=== PATIENT | female | born 1985 | race Caucasian/White ===

== ENCOUNTER → 2016-09-06 | Outpatient (CLI) | payer OTHER ==
[~2016-09-06] MED LIST: ADDERALL10 MG PO; FLAGYL500 MG PO; FLEXERIL10 MG PO; LEVAQUIN750 MG PO; LOMOTIL 0.025 M1 TA1 PO; NASONEX0.05 MG/AC NAS; NORFLEX100 MG PO; PHENERGAN25 M1 PO; PREDNICOT20 MG PO; SUBUTEX2 MG SL; SUBUTEX8 M1 SL; TOPAMAX2 MG PO; TOPAMAX25 M1 PO; TRAMADOL HCL50 MG PO; ULTRAM50 MG PO; ZANTAC150 MG PO; ZITHROMAX Z PA250 MG PO; ZITHROMAX250 MG PO; ZOFRAN ODT4 MG SL; ZOLOFT100 MG PO; ZYRTEC10 MG PO
[2016-09-06 11:40] LABS: HEMATOCRIT 40.3 % (37.0-47.0); HEMOGLOBIN 12.2 g/dl (12.0-16.0); MEAN CELL VOLUME 68.9 fl (81.0-99.0); MEAN CORPUSCULAR HGB 20.9 pg (27.0-31.0); MEAN CORPUSCULAR HGB CONC 30.3 g/dl (33.0-37.0); RED BLOOD COUNT 5.85 10*6/uL (4.10-5.10); RED CELL DISTRI WIDTH 17.3 % (0-14.5)
[2016-09-06 11:55] LABS: HEMOGLOBIN A1c 5.3 % (4.8-5.6)
[2016-09-06 11:59] LABS: ALKALINE PHOSPHATASE 75 U/L (45-117); BILIRUBIN, TOTAL 0.3 mg/dl (0.2-1.0); BUN 9 mg/dl (7-24); CARBON DIOXIDE 30 mmol/L (21-32); CHLORIDE 104 mmol/L (98-107); CHOLESTEROL 151 mg/dL (<200); EST GLOM FILT AFRICAN AMERICAN > 60 ml/min; GLUCOSE 86 mg/dL (65-99); HDL CHOLESTEROL 58 mg/dl (40-60); LDL CHOLESTEROL 63 mg/dL (9-159); POTASSIUM 4.1 mmol/L (3.5-5.1); SGOT/AST 14 IU/L (3-35); SGPT/ALT 23 U/L (12-78); SODIUM 138 mmol/L (136-145); TOTAL PROTEIN 7.3 gm/dL (6.4-8.2); TRIGLYCERIDES 152 mg/dl (<150); VLDL CHOLESTEROL 30 mg/dL (6-40)
== END | disposition home or self-care (01) ==
LOC: LAB 11:06
PROVIDERS: Family Medicine
DX: E55.9 Vitamin D deficiency, unspecified (principal); R63.1 Polydipsia; R13.10 Dysphagia, unspecified; R35.8 Other polyuria; D64.9 Anemia, unspecified; E74.9 Disorder of carbohydrate metabolism, unspecified

== ENCOUNTER → 2017-09-07 | Outpatient (CLI) | payer OTHER ==
[2017-09-07 11:09] LABS: HEMATOCRIT 39.6 % (37.0-47.0); HEMOGLOBIN 12.1 g/dl (12.0-16.0); MEAN CORPUSCULAR HGB 20.8 pg (27.0-31.0); MEAN CORPUSCULAR HGB CONC 30.6 g/dl (33.0-37.0); MEAN PLATELET VOLUME 10.6 fl (9.6-12.3); RED BLOOD COUNT 5.82 10*6/uL (4.10-5.10); RED CELL DISTRI WIDTH 17.8 % (0-14.5); WHITE BLOOD COUNT 13.1 10*3/uL (4.8-10.8)
[2017-09-07 11:26] LABS: ALBUMIN 3.7 gm/dl (3.1-4.5); BUN 11 mg/dl (7-24); CHLORIDE 107 mmol/L (98-107); CHOLESTEROL 143 mg/dL (<200); CREATININE 0.76 mg/dL (0.55-1.02); POTASSIUM 3.9 mmol/L (3.5-5.1); SGOT/AST 18 IU/L (3-35); SGPT/ALT 32 U/L (12-78); SODIUM 139 mmol/L (136-145); TOTAL PROTEIN 7.6 gm/dL (6.4-8.2); TRIGLYCERIDES 132 mg/dl (<150); VLDL CHOLESTEROL 26 mg/dL (6-40)
[2017-09-07 11:35] LABS: ALKALINE PHOSPHATASE 77 U/L (45-117); HDL CHOLESTEROL 45 mg/dl (40-60); LDL CHOLESTEROL 72 mg/dL (9-159); THYROID STIM HORMONE (HS) 0.592 uIU/ml (0.358-4.75)
== END | disposition home or self-care (01) ==
LOC: LAB 10:07
PROVIDERS: Family Medicine
DX: F90.9 Attention-deficit hyperactivity disorder, unspecified type (principal); F41.1 Generalized anxiety disorder; E55.9 Vitamin D deficiency, unspecified; R63.5 Abnormal weight gain; R53.83 Other fatigue; R05 Cough; R79.89 Other specified abnormal findings of blood chemistry

== ENCOUNTER → 2017-12-04 | Outpatient (CLI) | payer OTHER ==
--- NOTE | ~2017-12-04 | EKG ---
[place], [place] ELECTROCARDIOGRAM REPORT NAME: KAIA MAURICIO UNIT #: [id number] ROOM: DOCTOR: EPIPHANY DRAFT REPORT BIRTHDATE: [birth year] [facility] Test Date: 2017-12-04 Test Time: 13:37:50 Pat Name: KAIA MAURICIO Department: Room: Gender: F [employer]: : 1985 Requested By: HALIE MENEZES Order Number: [id number] Reading MD: Cyrus Mccarthy MD Measurements Intervals [place] Rate: 78 P: 60 KS: 138 QRS: 54 QRSD: 89 T: 30 QT: 368 QTc: 420 Interpretive Statements Sinus rhythm Nonspecific ST T changes Electronically Signed On 12-06-2017 8:52:17 PDT by Cyrus Mccarthy MD CM:EKGRPT:ELECTROCARDIOGRAM REPORT [id number] HALIE VALENTINE DRAFT REPORT HALIE MENEZES
== END | disposition home or self-care (01) ==
LOC: CARD 13:21
DX: Z51.81 Encounter for therapeutic drug level monitoring (principal); Z79.899 Other long term (current) drug therapy

== ENCOUNTER 2018-04-05 02:11 | Emergency (ER) | payer OTHER ==
[~2018-04-05] VITALS: Ht 152.4 cm; Wt 71.7 kg
[2018-04-05] MEDS ORDERED: Orphenadrine C100 MG PO (02:37)
[2018-04-05] MEDS ORDERED: PREDNISONE10 MG PO (02:37)
== END 2018-04-05 04:24 | disposition home or self-care (01) ==
LOC: ED 02:11
DX: M50.821 Other cervical disc disorders at C4-C5 level (principal); M79.18 Myalgia, other site; Z88.0 Allergy status to penicillin; Z91.040 Latex allergy status; Z88.8 Allergy status to other drugs, medicaments and biological substances

== ENCOUNTER → 2018-12-12 | Outpatient (CLI) | payer OTHER ==
[~2018-12-12] MED LIST changes: +Orphenadrine C100 MG PO; +PREDNISONE10 MG PO; +PREDNISONE50 MG PO
[2018-12-12 14:25] LABS: HEMATOCRIT 42.7 % (37.0-47.0); HEMOGLOBIN 12.8 g/dl (12.0-16.0); MEAN CELL VOLUME 69.9 fl (81.0-99.0); MEAN CORPUSCULAR HGB 20.9 pg (27.0-31.0); MEAN PLATELET VOLUME 10.4 fl (9.6-12.3); RED BLOOD COUNT 6.11 10*6/uL (4.10-5.10); RED CELL DISTRI WIDTH 17.4 % (0-14.5); WHITE BLOOD COUNT 11.3 10*3/uL (4.8-10.8)
[2018-12-12 14:35] LABS: ALBUMIN 4.1 gm/dl (3.1-4.5); ALKALINE PHOSPHATASE 76 U/L (45-117); BUN 12 mg/dl (7-24); CHLORIDE 106 mmol/L (98-107); CHOLESTEROL 180 mg/dL (<200); CREATININE 0.75 mg/dL (0.55-1.02); FREE T4 0.98 ng/dl (0.76-1.46); HDL CHOLESTEROL 51 mg/dl (40-60); LDL CHOLESTEROL 77 mg/dL (9-159); SGOT/AST 32 IU/L (3-35); SGPT/ALT 38 U/L (12-78); SODIUM 139 mmol/L (136-145); TOTAL PROTEIN 7.8 gm/dL (6.4-8.2); TRIGLYCERIDES 259 mg/dl (<150); VLDL CHOLESTEROL 52 mg/dL (6-40)
== END | disposition home or self-care (01) ==
LOC: LAB 13:33
PROVIDERS: Family Medicine
DX: E78.00 Pure hypercholesterolemia, unspecified (principal); R53.83 Other fatigue; R63.5 Abnormal weight gain

== ENCOUNTER → 2020-01-16 | Outpatient (CLI) | payer OTHER | END | disposition home or self-care (01) | LOC: COVID19 00:48 | PROVIDERS: ATTEND Family Medicine | DX: Z20.828 Contact with and (suspected) exposure to other viral communicable diseases (principal) ==

== ENCOUNTER → 2020-04-01 | Outpatient (CLI) | payer OTHER | END | disposition home or self-care (01) | LOC: COVID19 11:46 | PROVIDERS: ATTEND Family Medicine | DX: Z20.828 Contact with and (suspected) exposure to other viral communicable diseases (principal) ==

== ENCOUNTER 2020-07-27 12:12 | Emergency (ER) | payer OTHER ==
[~2020-07-27] VITALS: Ht 152.4 cm; Wt 83.9 kg
[2020-07-27 13:35] LABS: BASO % 0.4 % (0.0-1.0); EOS # 0.1 10*3/uL (0.0-0.4); EOS % 0.9 % (1.0-4.0); HEMATOCRIT 38.7 % (37.0-47.0); LYMPH # 3.1 10*3/uL (1.3-4.4); LYMPH % 31.8 % (27.0-41.0); MEAN CELL VOLUME 67.8 fl (81.0-99.0); MONO # 0.5 10*3/uL (0.1-1.0); MONO % 4.6 % (3.0-9.0); NEUT % 61.4 % (47.0-73.0); PLATELET COUNT AUTOMATED 362 10*3/uL (130-400); RED BLOOD COUNT 5.71 10*6/uL (4.10-5.10); RED CELL DISTRI WIDTH 16.1 % (0-14.5); WHITE BLOOD COUNT 9.7 10*3/uL (4.8-10.8)
[2020-07-27 13:52] LABS: ALBUMIN 3.2 gm/dl (3.1-4.5); ALKALINE PHOSPHATASE 83 U/L (45-117); BUN 13 mg/dl (7-24); CHLORIDE 111 mmol/L (98-107); CREATININE 0.74 mg/dL (0.55-1.02); LIPASE 96 U/L (73-393); POTASSIUM 3.6 mmol/L (3.5-5.1); SGOT/AST 26 IU/L (3-35); SGPT/ALT 50 U/L (12-78); SODIUM 142 mmol/L (136-145); TOTAL PROTEIN 6.3 gm/dL (6.4-8.2)
[2020-07-27 13:54] LABS: FREE T4 0.99 ng/dl (0.76-1.46)
[2020-07-27 14:00] LABS: THYROID STIM HORMONE (HS) 0.691 uIU/ml (0.358-4.75)
[2020-07-27 14:02] LABS: BILIRUBIN Negative (Negative); BLOOD 3+ (Negative); CLARITY Clear (Clear); COLOR Yellow (Yellow); GLUCOSE Negative (Negative); KETONE Negative (Negative); LEUKO ESTERASE Negative (Negative); NITRITE Negative (Negative); SPECIFIC GRAVITY 1.015 (1.001-1.030)
[2020-07-27 14:12] LABS: BACTERIA 1+; RBC 31-40 rbc/hpf (0-2)
== END 2020-07-27 15:33 | disposition home or self-care (01) ==
LOC: ED 12:12
PROVIDERS: Physician Assistant
DX: E86.0 Dehydration (principal); F32.9 Major depressive disorder, single episode, unspecified; F41.9 Anxiety disorder, unspecified; Z88.0 Allergy status to penicillin; Z91.040 Latex allergy status; Z79.899 Other long term (current) drug therapy

== ENCOUNTER → 2021-05-12 | Outpatient (CLI) | payer OTHER | END | disposition home or self-care (01) | LOC: RAD 10:48 | PROVIDERS: ATTEND Family Medicine | DX: U07.1 COVID-19 (principal); R06.02 Shortness of breath; J98.4 Other disorders of lung ==

== ENCOUNTER → 2022-12-08 | Outpatient (CLI) | payer OTHER ==
[2022-12-08 17:44] LABS: HEMATOCRIT 41.8 % (37.0-47.0); MEAN CELL VOLUME 69.3 fl (81.0-99.0); MEAN CORPUSCULAR HGB 21.2 pg (27.0-31.0); MEAN CORPUSCULAR HGB CONC 30.6 g/dl (33.0-37.0); MEAN PLATELET VOLUME 9.7 fl (9.6-12.3); RED BLOOD COUNT 6.03 10*6/uL (4.10-5.10); RED CELL DISTRI WIDTH 18.4 % (0-14.5); WHITE BLOOD COUNT 15.5 10*3/uL (4.8-10.8)
[2022-12-08 18:15] LABS: ALKALINE PHOSPHATASE 91 U/L (46-116); BUN 11 mg/dl (9-23); CHLORIDE 107 mmol/L (98-107); CHOLESTEROL 139 mg/dL (<200); LDL CHOLESTEROL 78 mg/dL (9-159); POTASSIUM 3.9 mmol/L (3.4-5.1); SGPT/ALT 34 U/L (10-49); TOTAL PROTEIN 7.1 gm/dL (6.0-8.0); TRIGLYCERIDES 124 mg/dl (<150)
== END | disposition home or self-care (01) ==
LOC: LAB 17:29
PROVIDERS: ATTEND Family Medicine
DX: Z00.00 Encounter for general adult medical examination without abnormal findings (principal); I10 Essential (primary) hypertension; R53.83 Other fatigue; J45.909 Unspecified asthma, uncomplicated; F41.1 Generalized anxiety disorder; E74.00 Glycogen storage disease, unspecified

== ENCOUNTER → 2023-08-15 | Outpatient (CLI) | payer OTHER ==
[2023-08-15 08:16] LABS: HEMATOCRIT 41.3 % (37.0-47.0); MEAN CELL VOLUME 69.1 fl (81.0-99.0); MEAN CORPUSCULAR HGB 21.2 pg (27.0-31.0); MEAN CORPUSCULAR HGB CONC 30.8 g/dl (33.0-37.0); MEAN PLATELET VOLUME 9.3 fl (9.6-12.3); RED BLOOD COUNT 5.98 10*6/uL (4.10-5.10); RED CELL DISTRI WIDTH 17.6 % (0-14.5); WHITE BLOOD COUNT 12.7 10*3/uL (4.8-10.8)
[2023-08-15 08:45] LABS: ALKALINE PHOSPHATASE 86 U/L (46-116); BUN 13 mg/dl (9-23); CHLORIDE 107 mmol/L (98-107); FREE T4 0.88 ng/dl (0.89-1.76); POTASSIUM 3.8 mmol/L (3.4-5.1); SGPT/ALT 16 U/L (5-49)
[2023-08-15 09:13] LABS: VITAMIN D, 25-HYDROXY 16.5 ng/mL (30-100)
== END | disposition home or self-care (01) ==
LOC: LAB 07:57
PROVIDERS: ATTEND Family Medicine
DX: E74.00 Glycogen storage disease, unspecified (principal); F41.1 Generalized anxiety disorder; I10 Essential (primary) hypertension; R63.5 Abnormal weight gain; J31.0 Chronic rhinitis; L65.9 Nonscarring hair loss, unspecified

== ENCOUNTER 2023-10-15 21:41 | Emergency (ER) | payer OTHER ==
[~2023-10-15] VITALS: Ht 167.6 cm; Wt 90.7 kg
== END 2023-10-16 00:59 | disposition short-term general hospital (02) ==
LOC: ED 21:41
DX: S82.301A Unspecified fracture of lower end of right tibia, initial encounter for closed fracture (principal); F32.A Depression, unspecified; F41.9 Anxiety disorder, unspecified; Z88.0 Allergy status to penicillin; Z88.6 Allergy status to analgesic agent; Z91.040 Latex allergy status; Z98.890 Other specified postprocedural states; V89.2XXA Person injured in unspecified motor-vehicle accident, traffic, initial encounter; Y93.89 Activity, other specified; Y92.410 Unspecified street and highway as the place of occurrence of the external cause; Y99.8 Other external cause status

== ENCOUNTER → 2023-10-22 | Emergency (ER) | payer OTHER ==
[~2023-10-22] VITALS: Ht 154.9 cm; Wt 78.0 kg
[~2023-10-22] MED LIST changes: +ACETAMINOPHEN 325 MG TAB PO PRN; +ACETAMINOPHEN 650 MG SUPP R PRN; +ADDERALL 10 MG10 MG PO; +Acetaminophen/Hydrocodone 5 MG/325 MG TABLET PO PRN; +BISACODYL 10 MG SUPP R PRN; +BISACODYL 5 MG TAB PO PRN; +BUSPAR5 MG PO; +CLARITIN10 MG PO; +DIAZEPAM2 MG PO; +ESCITALOPRAM OX10 MG PO; +HYDROXYZINE PAM25 M1 PO; +HYDROmorphONE Hydrochloride 1 MG/ML SYR IV ONE; +METOPROLOL SUCC50 M1 PO; +MONTELUKAST SOD10 MG PO; +MORPHINE Sulfate 2 MG/ML SYR IV ONE; +Magnesium Hydroxide 30 ML UDC PO PRN; +Ondansetron Hydrochloride 4 MG/2 ML VIAL IV ONE; +Ondansetron Hydrochloride 4 MG/2 ML VIAL IV PRN; +SODIUM CHLORIDE 0.9% 1,000 ML IV ONE; +SODIUM CHLORIDE 0.9% 1,000 ML IV SCH; +Vancomycin Hydrochloride 250 ML IV ONE
[2023-10-22 17:47] VITALS: BP 149/74
[2023-10-22 18:12] LABS: BASO # 0.1 10*3/uL (0.0-0.1); BASO % 0.4 % (0.0-1.0); EOS # 0.2 10*3/uL (0.0-0.4); LYMPH # 4.5 10*3/uL (1.3-4.4); LYMPH % 27.7 % (27.0-41.0); MEAN CELL VOLUME 68.7 fl (81.0-99.0); MEAN CORPUSCULAR HGB 21.4 pg (27.0-31.0); MEAN CORPUSCULAR HGB CONC 31.1 g/dl (33.0-37.0); MEAN PLATELET VOLUME 9.7 fl (9.6-12.3); MONO # 0.9 10*3/uL (0.1-1.0); MONO % 5.7 % (3.0-9.0); NEUT # 10.2 10*3/uL (2.3-7.9); NEUT % 63.7 % (47.0-73.0); PLATELET COUNT AUTOMATED 391 10*3/uL (130-400); RED BLOOD COUNT 5.24 10*6/uL (4.10-5.10); RED CELL DISTRI WIDTH 16.1 % (0-14.5)
[2023-10-22 18:39] LABS: BUN 12 mg/dl (9-23); CHLORIDE 104 mmol/L (98-107)
[2023-10-22 21:21] VITALS: BP 130/86
== END ==
LOC: ED 17:39 → EDHOLD 20:31 → 4E 21:58 → EDHOLD 21:58 → 4E 21:58
PROVIDERS: Emergency Medicine
DX: G89.18 Other acute postprocedural pain (principal); M79.604 Pain in right leg; F41.9 Anxiety disorder, unspecified; F32.A Depression, unspecified; Z88.0 Allergy status to penicillin; Z88.6 Allergy status to analgesic agent; Z91.040 Latex allergy status; Z98.890 Other specified postprocedural states

== ENCOUNTER → 2024-12-12 | Outpatient (CLI) | payer OTHER ==
[~2024-12-12] MED LIST changes: -ACETAMINOPHEN 325 MG TAB PO PRN; -ACETAMINOPHEN 650 MG SUPP R PRN; -Acetaminophen/Hydrocodone 5 MG/325 MG TABLET PO PRN; -BISACODYL 10 MG SUPP R PRN; -BISACODYL 5 MG TAB PO PRN; -HYDROmorphONE Hydrochloride 1 MG/ML SYR IV ONE; -MORPHINE Sulfate 2 MG/ML SYR IV ONE; -Magnesium Hydroxide 30 ML UDC PO PRN; -Ondansetron Hydrochloride 4 MG/2 ML VIAL IV ONE; -Ondansetron Hydrochloride 4 MG/2 ML VIAL IV PRN; -SODIUM CHLORIDE 0.9% 1,000 ML IV ONE; -SODIUM CHLORIDE 0.9% 1,000 ML IV SCH; -Vancomycin Hydrochloride 250 ML IV ONE
[2024-12-12 12:42] LABS: MEAN CELL VOLUME 68.8 fl (81.0-99.0); MEAN CORPUSCULAR HGB 20.7 pg (27.0-31.0); MEAN PLATELET VOLUME 9.8 fl (9.6-12.3); NUCLEATED RED BLOOD CELL 0.0 % (0.0-0.0); NUCLEATED RED BLOOD CELL 0.0 10*3/uL (0.0-0.0); PLATELET COUNT AUTOMATED 364.0 10*3/uL (130-400); RED CELL DISTRI WIDTH 17.6 % (0-14.5)
[2024-12-12 13:10] LABS: BUN 9 mg/dl (9-23); FREE T4 1.02 ng/dl (0.89-1.76); LDL CHOLESTEROL 112 mg/dL (9-159); SGPT/ALT 43 U/L (5-49)
[2024-12-12 13:22] LABS: VITAMIN D, 25-HYDROXY 18.2 ng/mL (30-100)
== END ==
LOC: LAB 10:42
PROVIDERS: ATTEND Family Medicine
DX: I10 Essential (primary) hypertension (principal); E74.00 Glycogen storage disease, unspecified; R63.5 Abnormal weight gain; F41.1 Generalized anxiety disorder; M25.561 Pain in right knee; R53.82 Chronic fatigue, unspecified